=== PATIENT | male | born 1985 | race Caucasian/White ===

== ENCOUNTER 2017-10-14 23:23 | Inpatient (IN) | payer MEDICAID ==
[~2017-10-14] VITALS: Ht 170.2 cm; Wt 62.1 kg
[2017-10-15 01:27] LABS: AMPHET/METH SCREEN,URINE NEGATIVE (NEGATIVE); BARBITURATE SCREEN, URINE NEGATIVE (NEGATIVE); BENZODIAZEPINES SCREEN,URINE NEGATIVE (NEGATIVE); CANNABINOID SCREEN,URINE POSITIVE (NEGATIVE); COCAINE SCREEN,URINE NEGATIVE (NEGATIVE); METHADONE SCREEN, URINE NEGATIVE (NEGATIVE); OPIATE SCREEN,URINE NEGATIVE (NEGATIVE); PHENCYCLIDINE SCREEN,URINE NEGATIVE (NEGATIVE)
[2017-10-15 01:52] LABS: BASOPHILS % (AUTO) 0.8 % (0.0-2.0); EOSINOPHILS % (AUTO) 0.8 % (1.0-6.0); HEMATOCRIT 46.4 % (41-53); HEMOGLOBIN 15.4 g/dL (13.5-17.5); LYMPHOCYTES % (AUTO) 10.6 % (22.0-44.0); MEAN CORPUSCULAR HEMOGLOBIN 29.2 pg (26.0-34.0); MEAN CORPUSCULAR HGB CONC 33.2 G/dL (31.0-37.0); MEAN CORPUSCULAR VOLUME 88 fL (80-100); MONOCYTES # (AUTO) 0.7 K/uL (0.1-1.0); MONOCYTES % (AUTO) 7.6 % (2.0-9.0); NEUTROPHILS # (AUTO) 7.9 K/uL (1.8-7.7); NEUTROPHILS % (AUTO) 80.2 % (40.0-70.0); PLATELET COUNT (AUTO) 251 K/uL (150-450); RED BLOOD CELL COUNT(AUTO) 5.28 MIL/uL (4.50-5.90); RED CELL DISTRIBUTION WIDTH 14.1 % (11.5-14.5)
[2017-10-15 01:58] LABS: ANION GAP 8 mmol/L (8-16); CALCIUM, TOTAL 9.4 mg/dL (8.8-10.5); CARBON DIOXIDE 33 mmol/L (22-29); CHLORIDE 102 mmol/L (98-107); CREATININE 0.87 mg/dL (0.60-1.30); GLOMERULAR FILTR. RATE CALC > 60 mL/min (>60); GLUCOSE,RANDOM 88 mg/dL (70-110); POTASSIUM 4.1 mmol/L (3.5-5.1); SODIUM SERUM 143 mmol/L (136-145); UREA NITROGEN, BLOOD 20 mg/dL (7-18)
[2017-10-15 02:05] LABS: ALANINE AMINOTRANSFERASE 29 U/L (12-78); ALBUMIN 4.7 g/dL (3.4-5.0); ALKALINE PHOSPHATASE 61 U/L (46-116); ASPARTATE AMINOTRANSFERASE 20 U/L (15-37); BILIRUBIN,TOTAL 0.5 mg/dL (0.1-1.0)
[2017-10-15] MEDS ORDERED: DiphenhydrAMINE HCL 50 MG/ML VIAL IM ONE (03:15)
[2017-10-15] MEDS ORDERED: HALOPERIDOL LACTATE 5 MG/ML VIAL IM ONE (03:15)
[2017-10-15] MEDS ORDERED: LORazepam 2 MG TABLET PO ONE (03:15)
[2017-10-15] MEDS ORDERED: LORazepam 2 MG TABLET PO PRN ×2 (03:45→18:15)
[2017-10-15] MEDS ORDERED: LORazepam 2 MG/ML VIAL IM ONE (04:00)
[2017-10-15 10:14] LABS: APPEARANCE,URINE TURBID (CLEAR); BILIRUBIN,URINE NEGATIVE (NEGATIVE); GLUCOSE, URINE (UA) NEGATIVE (NEGATIVE); KETONES,URINE NEGATIVE (NEGATIVE); LEUKOCYTE ESTERASE ,URINE SMALL (NEGATIVE); NITRATE,URINE NEGATIVE (NEGATIVE); OCCULT BLOOD,URINE MODERATE (NEGATIVE); PH,URINE 6.5 (5.0-8.0); PROTEIN,URINE TRACE (NEGATIVE)
[2017-10-15 10:19] LABS: AMORPHOUS SEDIMENT,UR Many /LPF (None Seen); BACTERIA,URINE Many /HPF (None Seen); SQUAMOUS EPITHELIAL CELL,UR Few /LPF (None Seen)
[2017-10-15 17:00] VITALS: BP 113/70
[2017-10-15 17:35] VITALS: BP 113/79
[2017-10-15 18:00] VITALS: BP 140/80
[2017-10-15] MEDS ORDERED: CYANOCOBALAMIN 1,000 MCG/ML VIAL IM ONE (18:15)
[2017-10-15 19:00] VITALS: BP 107/72
[2017-10-15 20:00] VITALS: BP 115/65
[2017-10-15] MEDS: ZOLPIDEM TARTRATE 10 MG TABLET PO PRN (20:42)
[2017-10-15 21:00] VITALS: BP 116/65
[2017-10-16 06:49] VITALS: BP 107/72
[2017-10-16] MEDS ORDERED: LORazepam 2 MG TABLET PO PRN (07:00)
[2017-10-16 08:08] LABS: CHOL/HDL RATIO 2.2 (4.2-7.3)
[2017-10-16 08:21] VITALS: BP 121/68
[2017-10-16] MEDS ORDERED: LORazepam 2 MG TABLET PO SCH (09:00)
[2017-10-16] MEDS: THIAMINE HCL 100 MG TABLET PO SCH (09:00)
[2017-10-16] MEDS: FOLIC ACID 1 MG TABLET PO SCH (09:00)
[2017-10-16] MEDS: MULTIVITAMINS WITH MINERALS, THERAPEUTIC TABLET PO SCH (09:00)
[2017-10-16 09:05] VITALS: BP 121/68
[2017-10-16] MEDS ORDERED: MAGNESIUM HYDROXIDE SUSPENSION 30 ML UDCUP PO PRN (09:15)
[2017-10-16] MEDS ORDERED: PETROLATUM,WHITE 71 GM JELLY TP PRN (09:15)
[2017-10-16] MEDS ORDERED: ALBUTEROL SULFATE HFA 90 MCG/PUFF 8 GM INHALER IH PRN (09:15)
[2017-10-16] MEDS ORDERED: IBUPROFEN 600 MG TABLET PO PRN (09:15)
[2017-10-16] MEDS ORDERED: MAG HYDROX/AL HYDROX/SIMETH ES 30 ML SUSPENSION UDCUP PO PRN (09:15)
[2017-10-16] MEDS ORDERED: ONDANSETRON HCL 4 MG TABLET PO PRN (09:15)
[2017-10-16] MEDS ORDERED: CloNIDine HCL 0.1 MG TABLET PO PRN (09:15)
[2017-10-16] MEDS ORDERED: BACITRACIN 28.4 GM OINTMENT TP PRN (09:15)
[2017-10-16] MEDS ORDERED: ACETAMINOPHEN 325 MG TABLET PO PRN (09:15)
[2017-10-16] MEDS ORDERED: BENZOCAINE/MENTHOL LOZENGE MM PRN (09:15)
[2017-10-16] MEDS ORDERED: LOPERAMIDE HCL 2 MG CAPSULE PO PRN (09:15)
[2017-10-16] MEDS: BuPROPion HCL XL 150 MG ER TABLET PO SCH (12:36)
[2017-10-16 16:00] VITALS: BP 121/83
[2017-10-16] MEDS: CIPROFLOXACIN HCL 250 MG TABLET PO SCH (16:46)
[2017-10-16] MEDS: ZOLPIDEM TARTRATE 10 MG TABLET PO PRN (20:35)
[2017-10-17 02:46] VITALS: BP 117/75
[2017-10-17 08:04] VITALS: BP 121/78
[2017-10-17] MEDS: CIPROFLOXACIN HCL 250 MG TABLET PO SCH ×2 (08:13→16:15)
[2017-10-17] MEDS: THIAMINE HCL 100 MG TABLET PO SCH (08:13)
[2017-10-17] MEDS: MULTIVITAMINS WITH MINERALS, THERAPEUTIC TABLET PO SCH (08:13)
[2017-10-17] MEDS: BuPROPion HCL XL 150 MG ER TABLET PO SCH (08:13)
[2017-10-17] MEDS: FOLIC ACID 1 MG TABLET PO SCH (08:13)
[2017-10-17] MEDS: HALOPERIDOL 5 MG TABLET PO PRN ×2 (10:03→16:15)
[2017-10-17 16:19] VITALS: BP 130/71
[2017-10-17] MEDS: ZOLPIDEM TARTRATE 10 MG TABLET PO PRN (20:55)
[2017-10-18 00:58] VITALS: BP 125/88
[2017-10-18] MEDS: HALOPERIDOL 5 MG TABLET PO PRN (00:59)
[2017-10-18] MEDS ORDERED: LORazepam 1 MG TABLET PO PRN (07:00)
[2017-10-18 08:20] VITALS: BP 122/76
[2017-10-18] MEDS: FOLIC ACID 1 MG TABLET PO SCH (08:32)
[2017-10-18] MEDS: THIAMINE HCL 100 MG TABLET PO SCH (08:33)
[2017-10-18] MEDS: BuPROPion HCL XL 150 MG ER TABLET PO SCH (08:33)
[2017-10-18] MEDS: MULTIVITAMINS WITH MINERALS, THERAPEUTIC TABLET PO SCH (08:33)
[2017-10-18] MEDS ORDERED: BUPR-47 PO (08:33)
[2017-10-18] MEDS ORDERED: LORazepam 1 MG TABLET PO SCH (09:00)
[2017-10-18 09:30] VITALS: BP 128/72
[2017-10-18] MEDS ORDERED: BUPR-93 PO (11:26)
[2017-10-19] MEDS ORDERED: LORazepam 1 MG TABLET PO PRN (07:00)
== END 2017-10-18 12:34 | disposition home or self-care (01) | DRG 751 ==
LOC: EMS 23:26 → B3A 10-15 15:36
DX: F33.2 Major depressive disorder, recurrent severe without psychotic features (principal); R45.851 Suicidal ideations; G43.909 Migraine, unspecified, not intractable, without status migrainosus; F12.10 Cannabis abuse, uncomplicated; F10.20 Alcohol dependence, uncomplicated; F41.9 Anxiety disorder, unspecified; F17.200 Nicotine dependence, unspecified, uncomplicated; N39.0 Urinary tract infection, site not specified; G47.00 Insomnia, unspecified; Z71.41 Alcohol abuse counseling and surveillance of alcoholic; Z56.0 Unemployment, unspecified; Z71.51 Drug abuse counseling and surveillance of drug abuser; Z72.89 Other problems related to lifestyle
CPT/HCPCS: 87081; 87086; G0480; J1200; J1630; J2060; J3420